=== PATIENT | female | born 1945 | race Caucasian/White ===

== ENCOUNTER 2017-08-11 12:05 | Inpatient (IN) | payer MEDICARE ==
[~2017-08-11] VITALS: Ht 157.5 cm; Wt 79.0 kg
[2017-08-11] MEDS ORDERED: SODIUM CHLORIDE 0.9% 1,000 ML IV ONE (12:11)
[2017-08-11 13:53] LABS: Basophils # (auto) 0 uL; Basophils % (auto) 0.5 % (0.0-2.0); Eosinophils # (auto) 0.1 uL; Eosinophils % (auto) 2.2 % (0.0-7.0); Lymphocytes # (auto) 1.4 uL; Monocytes # (auto) 0.4 uL; Neutrophils # (auto) 4.5 uL
[2017-08-11 13:55] LABS: Hematocrit 37.9 % (36.0-46.0); Hemoglobin 12.5 g/dL (12.2-16.2); Lymphocytes % (auto) 21.4 % (10.0-50.0); Mean Corpuscular Hemoglobin 23.7 pg (28.0-32.0); Mean Corpuscular Hgb Conc. 32.9 g/dL (32.0-36.0); Mean Corpuscular Volume 72.1 fL (80.0-100.0); Neutrophils % (auto) 69.9 % (37.0-80.0); Nucleated Red Blood Cells % 0.2 %; Platelet Count (auto) 300 10^3/uL (140-450); Red Blood Cells 5.26 10^6/uL (4.0-5.20); White Blood Cell 6.4 10^3/uL (4.4-10.8)
[2017-08-11 13:58] LABS: Red Cell Distribution Width 22.2 % (11.8-14.3)
[2017-08-11 14:07] LABS: INR 0.98 (0.9-1.15); Partial Thromboplastin Time 24.5 sec (22.64-33.71); Prothrombin Time 10.7 sec (9.37-12.3)
[2017-08-11 14:28] LABS: Alanine Aminotransferase 14 U/L (13-56); Albumin 3.7 g/dL (3.4-5.0); Alkaline Phosphatase 117 U/L (45-117); Anion Gap 12 (5-15); Aspartate Aminotransferase 11 U/L (15-37); BUN/Creatinine Ratio 10.8; Bilirubin, Total 0.3 mg/dL (0.2-1.0); Blood Urea Nitrogen 11 mg/dL (7-18); Calcium 8.1 mg/dL (8.5-10.1); Carbon Dioxide 22 mmol/L (21-32); Chloride 98 mmol/L (98-107); GFR African American 69 mL/min; GFR Non-African American 57 mL/min; Magnesium 2.1 mg/dL (1.6-2.6); Potassium 4.1 mmol/L (3.5-5.1); Sodium 132 mmol/L (136-145); Total Protein 8.1 g/dL (6.4-8.2)
[2017-08-11 14:40] LABS: Glucose 406 mg/dL (74-106)
[2017-08-11] MEDS ORDERED: BUPR100T14 PO (15:12)
[2017-08-11] MEDS ORDERED: ESOM40CA39 PO (15:12)
[2017-08-11] MEDS ORDERED: GABA300C10 PO (15:13)
[2017-08-11] MEDS ORDERED: MIRT30TA PO (15:13)
[2017-08-11] MEDS ORDERED: ALUM & MAG HYDROX-SIMETH LIQ(MAALOX) 30 ML PO ONE (15:15)
[2017-08-11] MEDS ORDERED: CYA100I PO (15:15)
[2017-08-11] MEDS ORDERED: CHOL20007 PO (15:15)
[2017-08-11] MEDS ORDERED: FERR-20 PO (15:15)
[2017-08-11] MEDS ORDERED: LORazepam 0.5 MG TAB PO PRN (15:15)
[2017-08-11] MEDS ORDERED: NITROGLYCERIN 0.4 MG SL TAB SL PRN ×2 (15:15)
[2017-08-11] MEDS ORDERED: MORPHINE SULF INJ 2 MG/ML SYRINGE 1ML IV PRN (15:15)
[2017-08-11] MEDS ORDERED: MORPHINE SULFATE 4 MG/ML SYR/VIAL IV PRN (15:15)
[2017-08-11] MEDS ORDERED: ONDANSETRON HCL 4 MG/2 ML VIAL IV PRN (15:15)
[2017-08-11] MEDS ORDERED: DEXTROSE (50%) 50ML SYRG IV PRN (15:30)
[2017-08-11] MEDS: ASPirin 81 mg TAB PO SCH (15:55)
[2017-08-11] MEDS: ENALAPRIL MALEATE 2.5 MG TAB PO SCH ×2 (15:57→22:03)
[2017-08-11] MEDS: CARVEDILOL 3.125 MG TAB PO SCH ×2 (15:57→22:02)
[2017-08-11] MEDS: CLOPIDOGREL BISULFATE 75 MG TAB PO SCH (15:57)
[2017-08-11] MEDS: ACCU-CHEK COMFORT CURVE STRIP VI SCH ×2 (16:28→22:03)
[2017-08-11] MEDS: InsuLIN REG 1unit/0.01ml Soln (100units/ml) SC SCH ×2 (16:30→22:14)
[2017-08-11 16:53] VITALS: BP 152/73
[2017-08-11 17:01] VITALS: BP 142/101
[2017-08-11] MEDS: FERROUS SULFATE 325 MG TAB PO SCH (17:30)
[2017-08-11] MEDS: buPROPion HCL 75 MG TAB PO SCH (18:47)
[2017-08-11 20:00] VITALS: BP 142/76
[2017-08-11 21:09] LABS: Urine Bacteria NONE SEEN /hpf (None Seen); Urine Blood Negative /uL (Negative); Urine Mucus FEW (None Seen); Urine Specific Gravity 1.029 (1.001-1.035); Urine WBC 24 /hpf (0 - 5)
[2017-08-11 22:00] VITALS: BP 142/76
[2017-08-11] MEDS: GABAPENTIN 300 MG CAP PO SCH (22:02)
[2017-08-11] MEDS: ATORVASTATIN 20 MG TAB PO SCH (22:02)
[2017-08-11] MEDS: MIRTAZAPINE 30 MG TAB PO SCH (22:02)
[2017-08-11] MEDS: ZOLPIDEM TARTRATE 5 MG TAB PO PRN (22:03)
[2017-08-11] MEDS: SODIUM CHLOR 0.9% PF (SALINE LOCK) 10ML VIAL IV SCH (22:11)
[2017-08-12] VITALS (7 sets, daily range): BP systolic 115–135; BP diastolic 66–86
[2017-08-12] MEDS: SODIUM CHLOR 0.9% PF (SALINE LOCK) 10ML VIAL IV SCH ×3 (05:56→21:56)
[2017-08-12 05:57] LABS: Basophils # (auto) 0 uL; Basophils % (auto) 0.6 % (0.0-2.0); Eosinophils # (auto) 0.2 uL; Monocytes # (auto) 0.4 uL; Nucleated Red Blood Cells % 0.2 %; White Blood Cell 4.9 10^3/uL (4.4-10.8)
[2017-08-12] MEDS: GABAPENTIN 300 MG CAP PO SCH ×3 (05:57→21:57)
[2017-08-12 06:00] LABS: Eosinophils % (auto) 4.3 % (0.0-7.0); Hematocrit 34.6 % (36.0-46.0); Hemoglobin 11.9 g/dL (12.2-16.2); Lymphocytes # (auto) 1.6 uL; Lymphocytes % (auto) 32.5 % (10.0-50.0); Mean Corpuscular Hemoglobin 24.6 pg (28.0-32.0); Mean Corpuscular Hgb Conc. 34.2 g/dL (32.0-36.0); Mean Corpuscular Volume 71.8 fL (80.0-100.0); Monocytes % (auto) 7.9 % (0.0-12.0); Neutrophils # (auto) 2.7 uL; Neutrophils % (auto) 54.7 % (37.0-80.0); Platelet Count (auto) 252 10^3/uL (140-450); Red Blood Cells 4.83 10^6/uL (4.0-5.20)
[2017-08-12 06:02] LABS: Red Cell Distribution Width 22.2 % (11.8-14.3)
[2017-08-12 06:21] LABS: Alanine Aminotransferase 12 U/L (13-56); Albumin 3.1 g/dL (3.4-5.0); Alkaline Phosphatase 99 U/L (45-117); Anion Gap 10 (5-15); Aspartate Aminotransferase 12 U/L (15-37); Bilirubin, Total 0.2 mg/dL (0.2-1.0); Blood Urea Nitrogen 16 mg/dL (7-18); Calcium 8.2 mg/dL (8.5-10.1); Carbon Dioxide 25 mmol/L (21-32); Chloride 101 mmol/L (98-107); Cholesterol 149 mg/dL (< 200); GFR African American 91 mL/min; GFR Non-African American 75 mL/min; Glucose 330 mg/dL (74-106); HDL Cholesterol 38 mg/dL (40-59); LDL Cholesterol 100 mg/dL (< 100); Magnesium 2.2 mg/dL (1.6-2.6); Sodium 136 mmol/L (136-145); Total Protein 6.9 g/dL (6.4-8.2); Triglycerides 147 mg/dL (< 150)
[2017-08-12] MEDS: buPROPion HCL 75 MG TAB PO SCH ×2 (06:24→17:52)
[2017-08-12] MEDS: ACCU-CHEK COMFORT CURVE STRIP VI SCH ×4 (06:24→21:58)
[2017-08-12] MEDS: InsuLIN REG 1unit/0.01ml Soln (100units/ml) SC SCH ×4 (06:32→22:13)
[2017-08-12] MEDS: ASPirin 81 mg TAB PO SCH (09:50)
[2017-08-12] MEDS: DOCUSATE SOD 100 MG CAP PO SCH (09:50)
[2017-08-12] MEDS: FERROUS SULFATE 325 MG TAB PO SCH ×2 (09:50→17:54)
[2017-08-12] MEDS: CHOLECALCIFEROL (VITD3) 1,000 UNIT TAB PO SCH (09:50)
[2017-08-12] MEDS: PANTOPRAZOLE 40 MG TAB PO SCH (09:50)
[2017-08-12] MEDS: CYANOCOBALAMIN 500 MCG TAB PO SCH (09:50)
[2017-08-12] MEDS: CARVEDILOL 3.125 MG TAB PO SCH ×2 (09:52→21:57)
[2017-08-12] MEDS: CLOPIDOGREL BISULFATE 75 MG TAB PO SCH (09:53)
[2017-08-12] MEDS: ENALAPRIL MALEATE 2.5 MG TAB PO SCH ×2 (09:53→21:58)
[2017-08-12] MEDS: glipiZIDE 5 MG TAB PO SCH (12:12)
[2017-08-12] MEDS: metFORMIN HYDROCHLORIDE 500 MG TAB PO SCH (17:55)
[2017-08-12] MEDS: ATORVASTATIN 20 MG TAB PO SCH (21:57)
[2017-08-12] MEDS: MIRTAZAPINE 30 MG TAB PO SCH (21:58)
[2017-08-12] MEDS: ACETAMINOPHEN 325 MG TAB PO PRN (21:59)
[2017-08-12] MEDS: ZOLPIDEM TARTRATE 5 MG TAB PO PRN (21:59)
[2017-08-12] MEDS ORDERED: POLYETHYLENE GLYCOL 17 GM PWDR PO PRN (23:00)
[2017-08-12] MEDS ORDERED: POLYETHYLENE GLYCOL 17 GM PWDR PO ONE (23:00)
[2017-08-13] VITALS (11 sets, daily range): BP systolic 105–148; BP diastolic 55–80
[2017-08-13 05:33] LABS: Basophils # (auto) 0 uL; Basophils % (auto) 0.6 % (0.0-2.0); Eosinophils # (auto) 0.2 uL; Lymphocytes # (auto) 1.7 uL; Monocytes # (auto) 0.4 uL; Neutrophils # (auto) 2.6 uL; Nucleated Red Blood Cells % 0.1 %; White Blood Cell 4.8 10^3/uL (4.4-10.8)
[2017-08-13 05:37] LABS: Eosinophils % (auto) 3.5 % (0.0-7.0); Hematocrit 35.2 % (36.0-46.0); Hemoglobin 11.7 g/dL (12.2-16.2); Lymphocytes % (auto) 34.3 % (10.0-50.0); Mean Corpuscular Hemoglobin 24.1 pg (28.0-32.0); Mean Corpuscular Hgb Conc. 33.1 g/dL (32.0-36.0); Mean Corpuscular Volume 72.9 fL (80.0-100.0); Monocytes % (auto) 8.7 % (0.0-12.0); Neutrophils % (auto) 52.9 % (37.0-80.0); Platelet Count (auto) 247 10^3/uL (140-450); Red Blood Cells 4.83 10^6/uL (4.0-5.20)
[2017-08-13 05:46] LABS: INR 0.97 (0.9-1.15); Prothrombin Time 10.6 sec (9.37-12.3)
[2017-08-13 05:48] LABS: Red Cell Distribution Width 22.2 % (11.8-14.3)
[2017-08-13 06:00] LABS: BUN/Creatinine Ratio 23.2; Calcium 8.9 mg/dL (8.5-10.1); Potassium 3.7 mmol/L (3.5-5.1)
[2017-08-13] MEDS: GABAPENTIN 300 MG CAP PO SCH ×3 (06:00→22:26)
[2017-08-13] MEDS: buPROPion HCL 75 MG TAB PO SCH ×2 (06:10→18:05)
[2017-08-13] MEDS: SODIUM CHLOR 0.9% PF (SALINE LOCK) 10ML VIAL IV SCH ×3 (06:10→22:25)
[2017-08-13] MEDS: glipiZIDE 5 MG TAB PO SCH ×2 (06:11→18:06)
[2017-08-13] MEDS: metFORMIN HYDROCHLORIDE 500 MG TAB PO SCH (06:11)
[2017-08-13] MEDS: ACCU-CHEK COMFORT CURVE STRIP VI SCH ×4 (06:41→22:26)
[2017-08-13] MEDS: InsuLIN REG 1unit/0.01ml Soln (100units/ml) SC SCH ×5 (06:41→22:41)
[2017-08-13] MEDS: DOCUSATE SOD 100 MG CAP PO SCH (08:24)
[2017-08-13] MEDS: ENALAPRIL MALEATE 2.5 MG TAB PO SCH ×2 (08:24→22:26)
[2017-08-13] MEDS: CARVEDILOL 3.125 MG TAB PO SCH ×2 (08:25→22:25)
[2017-08-13] MEDS: FERROUS SULFATE 325 MG TAB PO SCH ×2 (08:25→18:05)
[2017-08-13] MEDS: PANTOPRAZOLE 40 MG TAB PO SCH (08:25)
[2017-08-13] MEDS: CHOLECALCIFEROL (VITD3) 1,000 UNIT TAB PO SCH (08:26)
[2017-08-13] MEDS: CYANOCOBALAMIN 500 MCG TAB PO SCH (08:26)
[2017-08-13] MEDS: CLOPIDOGREL BISULFATE 75 MG TAB PO SCH (08:28)
[2017-08-13] MEDS: ASPirin 81 mg TAB PO SCH (08:29)
[2017-08-13] MEDS ORDERED: PIOGLITAZONE HYDROCHLORIDE 30 MG TAB PO ONE (13:00)
[2017-08-13] MEDS ORDERED: LIDOCAINE 2%HCL (LOCAL ANESTH.) INJ 20ML MDV ONE (14:18)
[2017-08-13] MEDS ORDERED: IOHEXOL 350 MG/ML 100ML IJ ONE (14:18)
[2017-08-13] MEDS ORDERED: fentaNYL CITRATE 100 MCG/2 ML VL ONE (15:09)
[2017-08-13] MEDS ORDERED: MIDAZOLAM HCL 1MG/1ML-2 ML VIAL ONE (15:09)
[2017-08-13] MEDS ORDERED: ANGIOMAX 250 MG VIAL IV ONE (15:12)
[2017-08-13] MEDS ORDERED: SODIUM CHL 0.9% 0 ML ONE (15:13)
[2017-08-13] MEDS: SOD CHL 0.45% 1,000 ML IV SCH (18:07)
[2017-08-13] MEDS: ATORVASTATIN 20 MG TAB PO SCH (22:26)
[2017-08-13] MEDS: MIRTAZAPINE 30 MG TAB PO SCH (22:26)
[2017-08-13] MEDS: ZOLPIDEM TARTRATE 5 MG TAB PO PRN (22:27)
[2017-08-14] MEDS: SOD CHL 0.45% 1,000 ML IV SCH ×2 (00:43→10:32)
[2017-08-14] MEDS: ACETAMINOPHEN 325 MG TAB PO PRN (02:57)
[2017-08-14 05:40] VITALS: BP 122/75
[2017-08-14] MEDS: SODIUM CHLOR 0.9% PF (SALINE LOCK) 10ML VIAL IV SCH ×2 (06:05→14:44)
[2017-08-14] MEDS: GABAPENTIN 300 MG CAP PO SCH ×2 (06:47→14:43)
[2017-08-14] MEDS: buPROPion HCL 75 MG TAB PO SCH (06:48)
[2017-08-14] MEDS: ACCU-CHEK COMFORT CURVE STRIP VI SCH ×2 (06:48→11:53)
[2017-08-14] MEDS: glipiZIDE 5 MG TAB PO SCH (06:48)
[2017-08-14] MEDS: InsuLIN REG 1unit/0.01ml Soln (100units/ml) SC SCH ×2 (06:48→11:53)
[2017-08-14 07:08] LABS: Basophils # (auto) 0 uL; Basophils % (auto) 0.7 % (0.0-2.0); Eosinophils # (auto) 0.2 uL; Mean Corpuscular Hgb Conc. 32.5 g/dL (32.0-36.0); Monocytes # (auto) 0.4 uL
[2017-08-14 07:11] LABS: Eosinophils % (auto) 2.8 % (0.0-7.0); Hematocrit 35.9 % (36.0-46.0); Hemoglobin 11.7 g/dL (12.2-16.2); Lymphocytes # (auto) 1.5 uL; Lymphocytes % (auto) 25.2 % (10.0-50.0); Mean Corpuscular Hemoglobin 23.8 pg (28.0-32.0); Mean Corpuscular Volume 73.3 fL (80.0-100.0); Monocytes % (auto) 7.5 % (0.0-12.0); Neutrophils # (auto) 3.7 uL; Neutrophils % (auto) 63.8 % (37.0-80.0); Nucleated Red Blood Cells % 0.4 %; Platelet Count (auto) 205 10^3/uL (140-450); White Blood Cell 5.8 10^3/uL (4.4-10.8)
[2017-08-14 07:18] LABS: Red Cell Distribution Width 22.4 % (11.8-14.3)
[2017-08-14 07:38] LABS: BUN/Creatinine Ratio 16.9; Calcium 8.5 mg/dL (8.5-10.1); Potassium 4.4 mmol/L (3.5-5.1)
[2017-08-14] MEDS: FERROUS SULFATE 325 MG TAB PO SCH (08:29)
[2017-08-14 09:00] VITALS: BP 97/42
[2017-08-14] MEDS: ENALAPRIL MALEATE 2.5 MG TAB PO SCH (10:00)
[2017-08-14] MEDS: CARVEDILOL 3.125 MG TAB PO SCH (10:00)
[2017-08-14] MEDS ORDERED: PIOGLITAZONE HYDROCHLORIDE 30 MG TAB PO SCH (10:00)
[2017-08-14] MEDS: ASPirin 81 mg TAB PO SCH (10:28)
[2017-08-14] MEDS: CLOPIDOGREL BISULFATE 75 MG TAB PO SCH (10:28)
[2017-08-14] MEDS: CHOLECALCIFEROL (VITD3) 1,000 UNIT TAB PO SCH (10:28)
[2017-08-14] MEDS: DOCUSATE SOD 100 MG CAP PO SCH (10:28)
[2017-08-14] MEDS: PANTOPRAZOLE 40 MG TAB PO SCH (10:29)
[2017-08-14] MEDS: CYANOCOBALAMIN 500 MCG TAB PO SCH (10:35)
[2017-08-14] MEDS ORDERED: METF-490 PO (14:18)
[2017-08-14] MEDS ORDERED: PIO30T PO (14:18)
[2017-08-14] MEDS ORDERED: GLIP-116 PO (14:18)
[2017-08-14 16:13] VITALS: BP 103/66
[2017-08-15] MEDS ORDERED: metFORMIN HYDROCHLORIDE 500 MG TAB PO SCH (18:00)
== END 2017-08-14 17:03 | disposition home or self-care (01) | DRG 287 ==
LOC: ER 12:05 → TELE 12:06 → TELE-WESTW 16:51
PROVIDERS: ADMIT Internal Medicine; ATTEND Internal Medicine
PROC: 4A023N7 Measurement of Cardiac Sampling and Pressure, Left Heart, Percutaneous Approach (ICD-10-PCS; principal; 2017-08-11)
PROC: B2111ZZ Fluoroscopy of Multiple Coronary Arteries using Low Osmolar Contrast (ICD-10-PCS; 2017-08-11)
PROC: B2151ZZ Fluoroscopy of Left Heart using Low Osmolar Contrast (ICD-10-PCS; 2017-08-11)
DX: R07.9 Chest pain, unspecified (principal); E11.21 Type 2 diabetes mellitus with diabetic nephropathy; E11.51 Type 2 diabetes mellitus with diabetic peripheral angiopathy without gangrene; E87.1 Hypo-osmolality and hyponatremia; E11.65 Type 2 diabetes mellitus with hyperglycemia; E83.51 Hypocalcemia; R00.2 Palpitations; N18.3 Chronic kidney disease, stage 3 (moderate); E11.22 Type 2 diabetes mellitus with diabetic chronic kidney disease; Z96.641 Presence of right artificial hip joint; K21.9 Gastro-esophageal reflux disease without esophagitis; Z82.49 Family history of ischemic heart disease and other diseases of the circulatory system; Z83.3 Family history of diabetes mellitus; Z98.51 Tubal ligation status; Z79.899 Other long term (current) drug therapy; Z87.891 Personal history of nicotine dependence
CPT/HCPCS: 36415; 71045; 80048; 80053; 80061; 81001; 82962; 83036; 83540; 83735; 83880; 84443; 84484; 85025; 85610; 85730; 86850; 86900; 86901; 93005; 93306; 93458; 96360; 99152; J1815; J2250; J2405

== ENCOUNTER 2023-03-29 11:43 | Inpatient (IN) | payer MEDICARE ==
[~2023-03-29] VITALS: Ht 160 cm; Wt 79.5 kg
[~2023-03-29 11:43] MED LIST: BUPR-346 PO; CHOL20007 PO; CYA100I PO; ESOM40CA39 PO; FERR325T24 PO; GABA-1250 PO; GLIP10TA9 PO; METF-490 PO; MIRT-94 PO; PIO30T PO
[2023-03-29] MEDS ORDERED: ALBUTEROL SULF 2.5 MG/0.5ML(0.5%) NEB SOLN NEB ONE (12:00)
[2023-03-29 12:06] LABS: Hematocrit 36.7 % (36.0-46.0); Hemoglobin 12.6 g/dL (12.2-16.2)
[2023-03-29 12:08] LABS: Mean Corpuscular Hemoglobin 28.6 pg (28.0-32.0); Mean Corpuscular Hgb Conc. 34.3 g/dL (32.0-36.0); Mean Corpuscular Volume 83.2 fL (80.0-100.0); Red Blood Cells 4.41 10^6/uL (4.0-5.20); Red Cell Distribution Width 13.8 % (11.8-14.3); White Blood Cell 27.2 10^3/uL (4.4-10.8)
[2023-03-29 12:14] LABS: Basophils % (manual) 0 (0.0-2.0); Blast Cells 0; Eosinophils % (manual) 0 (0-7); Metamyelocytes % 0; Myelocytes % 0; Promyelocytes % 0; Reactive Lymphocytes 0
[2023-03-29 12:21] LABS: Alanine Aminotransferase 11 U/L (7-40); Albumin 3.3 g/dL (3.2-4.8); Alkaline Phosphatase 90 U/L (46-116); Aspartate Aminotransferase 12 U/L (13-40); BUN/Creatinine Ratio 15.7 (10.0-20.0); Blood Urea Nitrogen 14 mg/dL (9-23); Carbon Dioxide 22 mmol/L (20-30); Glucose 253 mg/dL (74-106)
[2023-03-29 12:22] LABS: Bilirubin, Total 1.1 mg/dL (0.2-1.0); Total Protein 5.7 g/dL (5.7-8.2)
[2023-03-29 12:41] LABS: Band Neutrophils % (manual) 3; Lymphocytes % (manual) 4 (10.0-50.0); Monocytes % (manual) 4 (0-12); Platelet Estimate Adequate; RBC Morphology Normal
[2023-03-29 12:42] LABS: Anion Gap 9 (5-15); Chloride 99 mmol/L (98-107); Potassium 3.3 mmol/L (3.5-5.1); Sodium 130 mmol/L (136-145)
[2023-03-29 12:48] VITALS: PULSE 111; RESP 16; O2SAT 100
[2023-03-29] MEDS ORDERED: IOHEXOL 300 MG/ML 100ML BOTTLE IJ ONE (14:20)
[2023-03-29] MEDS ORDERED: levoFLOXacin 750MG 150 ML IV ONE (14:30)
[2023-03-29] MEDS ORDERED: LACTATED RINGER'S 1,000 ML IV ONE ×2 (14:30→18:00)
[2023-03-29 17:11] LABS: Urine Bacteria NONE SEEN /hpf (None Seen); Urine Blood Negative /uL (Negative); Urine Clarity Clear (Clear); Urine Color Yellow (Yellow); Urine Mucus FEW (None Seen); Urine Protein, UAD 1+ (Negative); Urine Specific Gravity > 1.050 (1.001-1.035); Urine Urobilinogen Normal (Negative); Urine WBC 30 /hpf (0 - 5); Urine pH 6.5 (5.0-8.0)
[2023-03-29 17:55] VITALS: PULSE 119; RESP 12; O2SAT 91
[2023-03-29] MEDS ORDERED: POTASSIUM EFFERVESENT TAB 25 MEQ PO ONE (18:15)
[2023-03-29] MEDS ORDERED: ACETAMINOPHEN 325 MG TAB PO PRN (18:15)
[2023-03-29] MEDS ORDERED: MORPHINE SULFATE INJ 2 MG/ml SYRG IV PRN (18:15)
[2023-03-29] MEDS ORDERED: metroNIDAZOLE 500MG/100ML 100 ML IV ONE (18:15)
[2023-03-29] MEDS ORDERED: NITROGLYCERIN 0.4 MG SL TAB SL PRN (18:15)
[2023-03-29] MEDS ORDERED: DEXTROSE (50%) 50ML SYRG IV PRN (18:15)
[2023-03-29] MEDS ORDERED: PANTOPRAZOLE 40 MG/10 ML VIAL INJ IV ONE (19:00)
[2023-03-29 20:00] VITALS: PULSE 120; RESP 13; O2SAT 92
[2023-03-29 22:03] VITALS: BP 105/65; PULSE 117; RESP 19; TEMP 98.2; O2SAT 95
[2023-03-29] MEDS: SODIUM CHLORIDE 0.9% 1,000 ML IV SCH (22:06)
[2023-03-29] MEDS: CIPROFLOXACIN 400MG/200ML 200 ML IV SCH (22:06)
[2023-03-29] MEDS: GABAPENTIN 300 MG CAP PO SCH (22:06)
[2023-03-29] MEDS: ACCU-CHEK COMFORT CURVE STRIP VI SCH (22:07)
[2023-03-29] MEDS: InsuLIN REG 1unit/0.01ml Soln (100units/ml) SC SCH (22:29)
[2023-03-30] VITALS (7 sets, daily range): BP systolic 121–148; BP diastolic 56–74; PULSE 86–116; RESP 18–20; TEMP 97.8–98.8; O2SAT 90–99
[2023-03-30] MEDS: metroNIDAZOLE 500MG/100ML 100 ML IV SCH ×3 (02:00→18:57)
[2023-03-30] MEDS: GABAPENTIN 300 MG CAP PO SCH ×3 (06:18→22:41)
[2023-03-30] MEDS: ACCU-CHEK COMFORT CURVE STRIP VI SCH ×4 (06:18→22:41)
[2023-03-30] MEDS: InsuLIN REG 1unit/0.01ml Soln (100units/ml) SC SCH ×4 (06:26→22:40)
[2023-03-30 08:02] LABS: Hematocrit 35.6 % (36.0-46.0); Hemoglobin 12.3 g/dL (12.2-16.2); Mean Corpuscular Hemoglobin 28.9 pg (28.0-32.0); Mean Corpuscular Hgb Conc. 34.6 g/dL (32.0-36.0); Mean Corpuscular Volume 83.7 fL (80.0-100.0); Red Blood Cells 4.25 10^6/uL (4.0-5.20); Red Cell Distribution Width 13.6 % (11.8-14.3); White Blood Cell 29.8 10^3/uL (4.4-10.8)
[2023-03-30 08:05] LABS: Basophils % (manual) 0 (0.0-2.0); Blast Cells 0; Myelocytes % 0; Promyelocytes % 0; Reactive Lymphocytes 0
[2023-03-30 08:24] LABS: Albumin 3.1 g/dL (3.2-4.8); Alkaline Phosphatase 89 U/L (46-116); Aspartate Aminotransferase 14 U/L (13-40); BUN/Creatinine Ratio 14.8 (10.0-20.0); Bilirubin, Total 0.6 mg/dL (0.2-1.0); Blood Urea Nitrogen 12 mg/dL (9-23); Calcium 7.9 mg/dL (8.5-10.1); Carbon Dioxide 24 mmol/L (20-30); Glucose 166 mg/dL (74-106); Total Protein 5.5 g/dL (5.7-8.2)
[2023-03-30 08:25] LABS: Alanine Aminotransferase 9 U/L (7-40)
[2023-03-30 09:04] LABS: Anion Gap 6 (5-15); Chloride 100 mmol/L (98-107); Potassium 3.8 mmol/L (3.5-5.1); Sodium 130 mmol/L (136-145)
[2023-03-30] MEDS ORDERED: FERROUS SULFATE 325mg EC TAB PO SCH (10:00)
[2023-03-30] MEDS: PANTOPRAZOLE 40 MG/10 ML VIAL INJ IV SCH (11:27)
[2023-03-30] MEDS: CIPROFLOXACIN 400MG/200ML 200 ML IV SCH ×2 (11:27→22:40)
[2023-03-30] MEDS: CHOLECALCIFEROL (VITD3) 2,000 UNIT CAP/TAB PO SCH (11:29)
[2023-03-30] MEDS: buPROPion HCL 100 MG TAB PO SCH (11:30)
[2023-03-30] MEDS: ONDANSETRON HCL 4 MG/2 ML VIAL IV PRN (11:35)
[2023-03-30] MEDS: ENOXAPARIN SOD 40 MG/0.4 ML SYRINGE SC SCH (12:00)
[2023-03-30 13:00] LABS: Band Neutrophils % (manual) 12; Eosinophils % (manual) 2 (0-7); Lymphocytes % (manual) 4 (10.0-50.0); Metamyelocytes % 1; Monocytes % (manual) 4 (0-12)
[2023-03-30 13:01] LABS: Platelet Estimate Increased
[2023-03-30] MEDS: SODIUM CHLORIDE 0.9% 1,000 ML IV SCH ×2 (14:15→22:56)
[2023-03-30] MEDS: HYDROcodone-ACET 5/325MG TAB PO PRN (15:13)
[2023-03-30] MEDS: VANCOMYCIN HCL 125MG/5ML ORAL SOL PO SCH ×2 (18:52→22:41)
[2023-03-30] MEDS: MIRTAZAPINE 30 MG TAB PO SCH (18:57)
[2023-03-31] VITALS (7 sets, daily range): BP systolic 129–167; BP diastolic 61–84; PULSE 98–115; RESP 18–20; TEMP 97.6–98.7; O2SAT 94–97
[2023-03-31] MEDS: HYDROcodone-ACET 5/325MG TAB PO PRN ×4 (02:27→22:01)
[2023-03-31] MEDS: metroNIDAZOLE 500MG/100ML 100 ML IV SCH ×3 (02:27→17:28)
[2023-03-31] MEDS: GABAPENTIN 300 MG CAP PO SCH ×3 (06:14→21:55)
[2023-03-31] MEDS: VANCOMYCIN HCL 125MG/5ML ORAL SOL PO SCH ×4 (06:15→21:57)
[2023-03-31] MEDS: ACCU-CHEK COMFORT CURVE STRIP VI SCH ×4 (06:15→21:57)
[2023-03-31] MEDS: InsuLIN REG 1unit/0.01ml Soln (100units/ml) SC SCH ×4 (06:27→21:58)
[2023-03-31 10:04] LABS: Eosinophils # (auto) 0.1 10 ^3/uL (0-0.8); Eosinophils % (auto) 0.3 % (0.0-7.0); Hemoglobin 12.2 g/dL (12.2-16.2); Lymphocytes # (auto) 0.7 10 ^3/uL (0.4-5.4); Mean Corpuscular Hemoglobin 28.8 pg (28.0-32.0); Red Blood Cells 4.23 10^6/uL (4.0-5.20)
[2023-03-31 10:06] LABS: Basophils # (auto) 0.1 10 ^3/uL (0-0.2); Basophils % (auto) 0.3 % (0.0-2.0); Hematocrit 35.2 % (36.0-46.0); Lymphocytes % (auto) 3.4 % (10.0-50.0); Mean Corpuscular Hgb Conc. 34.6 g/dL (32.0-36.0); Mean Corpuscular Volume 83.2 fL (80.0-100.0); Monocytes # (auto) 1.4 10 ^3/uL (0-1.3); Monocytes % (auto) 6.4 % (0.0-12.0); Neutrophils # (auto) 18.8 10 ^3/uL (1.6-8.6); Neutrophils % (auto) 89.6 % (37.0-80.0); Red Cell Distribution Width 13.6 % (11.8-14.3)
[2023-03-31] MEDS: SODIUM CHLORIDE 0.9% 1,000 ML IV SCH ×2 (10:15→20:36)
[2023-03-31 10:27] LABS: Albumin 2.8 g/dL (3.2-4.8); Alkaline Phosphatase 86 U/L (46-116); Anion Gap 5 (5-15); Aspartate Aminotransferase 12 U/L (13-40); BUN/Creatinine Ratio 9.5 (10.0-20.0); Bilirubin, Total 0.3 mg/dL (0.2-1.0); Blood Urea Nitrogen 8 mg/dL (9-23); Calcium 7.6 mg/dL (8.7-10.4); Carbon Dioxide 23 mmol/L (20-30); Chloride 102 mmol/L (98-107); Glucose 172 mg/dL (74-106); Potassium 3.4 mmol/L (3.5-5.1); Sodium 130 mmol/L (136-145); Total Protein 5.1 g/dL (5.7-8.2)
[2023-03-31 10:32] LABS: Alanine Aminotransferase < 9 U/L (7-40)
[2023-03-31] MEDS: buPROPion HCL 100 MG TAB PO SCH (10:42)
[2023-03-31] MEDS: CHOLECALCIFEROL (VITD3) 2,000 UNIT CAP/TAB PO SCH (10:42)
[2023-03-31] MEDS: ENOXAPARIN SOD 40 MG/0.4 ML SYRINGE SC SCH (10:42)
[2023-03-31] MEDS: PANTOPRAZOLE 40 MG/10 ML VIAL INJ IV SCH (10:43)
[2023-03-31] MEDS: CIPROFLOXACIN 400MG/200ML 200 ML IV SCH ×2 (10:44→21:58)
[2023-03-31] MEDS: MIRTAZAPINE 30 MG TAB PO SCH (17:30)
[2023-04-01] VITALS (7 sets, daily range): BP systolic 123–151; BP diastolic 74–96; PULSE 103–120; RESP 16–20; TEMP 97.8–99.2; O2SAT 94–96
[2023-04-01] MEDS: metroNIDAZOLE 500MG/100ML 100 ML IV SCH ×3 (02:10→18:13)
[2023-04-01 05:50] LABS: Eosinophils # (auto) 0.1 10 ^3/uL (0-0.8); Hemoglobin 12.3 g/dL (12.2-16.2)
[2023-04-01 05:52] LABS: Basophils # (auto) 0 10 ^3/uL (0-0.2); Basophils % (auto) 0.2 % (0.0-2.0); Eosinophils % (auto) 0.6 % (0.0-7.0); Hematocrit 35.8 % (36.0-46.0); Lymphocytes % (auto) 6.2 % (10.0-50.0); Mean Corpuscular Hemoglobin 28.6 pg (28.0-32.0); Mean Corpuscular Hgb Conc. 34.4 g/dL (32.0-36.0); Mean Corpuscular Volume 83.4 fL (80.0-100.0); Monocytes # (auto) 1.3 10 ^3/uL (0-1.3); Monocytes % (auto) 8.2 % (0.0-12.0); Neutrophils # (auto) 13.8 10 ^3/uL (1.6-8.6); Neutrophils % (auto) 84.8 % (37.0-80.0); Red Blood Cells 4.29 10^6/uL (4.0-5.20); Red Cell Distribution Width 13.8 % (11.8-14.3); White Blood Cell 16.3 10^3/uL (4.4-10.8)
[2023-04-01 06:04] LABS: Alanine Aminotransferase 10 U/L (7-40); Alkaline Phosphatase 84 U/L (46-116); Anion Gap 6 (5-15); BUN/Creatinine Ratio 7.7 (10.0-20.0); Blood Urea Nitrogen 6 mg/dL (9-23); Calcium 7.5 mg/dL (8.7-10.4); Carbon Dioxide 22 mmol/L (20-30); Chloride 100 mmol/L (98-107); Glucose 181 mg/dL (74-106); Potassium 3.6 mmol/L (3.5-5.1); Sodium 128 mmol/L (136-145)
[2023-04-01 06:05] LABS: Albumin 2.7 g/dL (3.2-4.8); Aspartate Aminotransferase 17 U/L (13-40); Bilirubin, Total 0.3 mg/dL (0.2-1.0)
[2023-04-01 06:06] LABS: Total Protein 4.9 g/dL (5.7-8.2)
[2023-04-01] MEDS: ACCU-CHEK COMFORT CURVE STRIP VI SCH ×4 (06:25→21:31)
[2023-04-01] MEDS: GABAPENTIN 300 MG CAP PO SCH ×3 (06:25→21:30)
[2023-04-01] MEDS: SODIUM CHLORIDE 0.9% 1,000 ML IV SCH ×2 (06:26→19:45)
[2023-04-01] MEDS: VANCOMYCIN HCL 125MG/5ML ORAL SOL PO SCH ×4 (06:26→21:31)
[2023-04-01] MEDS: HYDROcodone-ACET 5/325MG TAB PO PRN ×2 (06:40→20:39)
[2023-04-01] MEDS: InsuLIN REG 1unit/0.01ml Soln (100units/ml) SC SCH ×4 (06:40→21:50)
[2023-04-01] MEDS ORDERED: LOPERAMIDE HCL 2 MG CAP/TAB PO PRN (08:30)
[2023-04-01] MEDS ORDERED: LOPERAMIDE HCL 2 MG CAP/TAB PO ONE (08:30)
[2023-04-01] MEDS ORDERED: cloNIDine HCL 0.1 MG TAB PO PRN (08:30)
[2023-04-01] MEDS: FLORASTOR (S. BOULARDII) 250 MG CAP PO SCH (10:21)
[2023-04-01] MEDS: CHOLECALCIFEROL (VITD3) 2,000 UNIT CAP/TAB PO SCH (10:21)
[2023-04-01] MEDS: ENOXAPARIN SOD 40 MG/0.4 ML SYRINGE SC SCH (10:21)
[2023-04-01] MEDS: buPROPion HCL 100 MG TAB PO SCH (10:22)
[2023-04-01] MEDS: PANTOPRAZOLE 40 MG/10 ML VIAL INJ IV SCH (10:23)
[2023-04-01] MEDS: CIPROFLOXACIN 400MG/200ML 200 ML IV SCH ×2 (10:33→21:31)
[2023-04-01] MEDS: MIRTAZAPINE 30 MG TAB PO SCH (18:12)
[2023-04-01] MEDS: ONDANSETRON HCL 4 MG/2 ML VIAL IV PRN (18:26)
[2023-04-02] MEDS: metroNIDAZOLE 500MG/100ML 100 ML IV SCH ×2 (02:10→12:24)
[2023-04-02] MEDS: HYDROcodone-ACET 5/325MG TAB PO PRN (02:18)
[2023-04-02] MEDS: SODIUM CHLORIDE 0.9% 1,000 ML IV SCH ×2 (02:19→12:15)
[2023-04-02 05:00] VITALS: BP 154/80; PULSE 104; RESP 16; TEMP 98; O2SAT 94
[2023-04-02 05:15] LABS: Basophils # (auto) 0 10 ^3/uL (0-0.2); Basophils % (auto) 0.2 % (0.0-2.0); Eosinophils # (auto) 0.1 10 ^3/uL (0-0.8); Eosinophils % (auto) 0.7 % (0.0-7.0); Hematocrit 32.3 % (36.0-46.0); Hemoglobin 11.2 g/dL (12.2-16.2); Lymphocytes # (auto) 0.8 10 ^3/uL (0.4-5.4); Lymphocytes % (auto) 5.4 % (10.0-50.0); Mean Corpuscular Hgb Conc. 34.5 g/dL (32.0-36.0); Monocytes # (auto) 1.2 10 ^3/uL (0-1.3); Monocytes % (auto) 8.2 % (0.0-12.0); Neutrophils # (auto) 12.8 10 ^3/uL (1.6-8.6); Neutrophils % (auto) 85.5 % (37.0-80.0); Nucleated Red Blood Cells % 0.1 %; Red Blood Cells 3.85 10^6/uL (4.0-5.20); Red Cell Distribution Width 13.8 % (11.8-14.3); White Blood Cell 14.9 10^3/uL (4.4-10.8)
[2023-04-02 05:24] LABS: Alanine Aminotransferase 19 U/L (7-40); Albumin 2.3 g/dL (3.2-4.8); Alkaline Phosphatase 79 U/L (46-116); Anion Gap 6 (5-15); Aspartate Aminotransferase 42 U/L (13-40); BUN/Creatinine Ratio 7.6 (10.0-20.0); Blood Urea Nitrogen 5 mg/dL (9-23); Calcium 7.2 mg/dL (8.7-10.4); Carbon Dioxide 20 mmol/L (20-30); Chloride 101 mmol/L (98-107); Glucose 125 mg/dL (74-106); Potassium 3.3 mmol/L (3.5-5.1); Sodium 127 mmol/L (136-145)
[2023-04-02 05:25] LABS: Bilirubin, Total 0.2 mg/dL (0.2-1.0); Total Protein 3.9 g/dL (5.7-8.2)
[2023-04-02] MEDS: ACCU-CHEK COMFORT CURVE STRIP VI SCH ×2 (06:19→12:24)
[2023-04-02] MEDS: GABAPENTIN 300 MG CAP PO SCH ×2 (06:19→13:11)
[2023-04-02] MEDS: VANCOMYCIN HCL 125MG/5ML ORAL SOL PO SCH ×2 (06:20→12:25)
[2023-04-02] MEDS: InsuLIN REG 1unit/0.01ml Soln (100units/ml) SC SCH ×2 (06:30→12:54)
[2023-04-02 08:00] VITALS: PULSE 112; RESP 18
[2023-04-02 09:00] VITALS: BP 133/78; PULSE 112; RESP 18; TEMP 98; O2SAT 95
[2023-04-02] MEDS: ENOXAPARIN SOD 40 MG/0.4 ML SYRINGE SC SCH (10:00)
[2023-04-02] MEDS: CHOLECALCIFEROL (VITD3) 2,000 UNIT CAP/TAB PO SCH (10:47)
[2023-04-02] MEDS: FLORASTOR (S. BOULARDII) 250 MG CAP PO SCH (10:47)
[2023-04-02] MEDS: buPROPion HCL 100 MG TAB PO SCH (10:47)
[2023-04-02] MEDS: PANTOPRAZOLE 40 MG/10 ML VIAL INJ IV SCH (10:47)
[2023-04-02] MEDS: CIPROFLOXACIN 400MG/200ML 200 ML IV SCH (10:48)
[2023-04-02 12:30] VITALS: BP 157/82; PULSE 106; RESP 18; TEMP 98.2; O2SAT 97
[2023-04-02 13:24] LABS: COVID19 ANTIGEN SOFIA FIA NEGATIVE (NEGATIVE)
== END 2023-04-02 16:15 | DRG 872 ==
LOC: ER 11:43 → TELE 18:20 → TELE-CENTR 21:32
PROVIDERS: ADMIT Nurse Practitioner Family; ATTEND Family Medicine
PROC: 05HC33Z Insertion of Infusion Device into Left Basilic Vein, Percutaneous Approach (ICD-10-PCS; principal; 2023-03-29)
PROC: B54NZZA Ultrasonography of Left Upper Extremity Veins, Guidance (ICD-10-PCS; 2023-03-29)
DX: A41.9 Sepsis, unspecified organism (principal); E87.1 Hypo-osmolality and hyponatremia; A04.72 Enterocolitis due to Clostridium difficile, not specified as recurrent; R65.20 Severe sepsis without septic shock; K21.9 Gastro-esophageal reflux disease without esophagitis; E87.6 Hypokalemia; E11.42 Type 2 diabetes mellitus with diabetic polyneuropathy; E11.65 Type 2 diabetes mellitus with hyperglycemia; E86.0 Dehydration; F32.A Depression, unspecified; E11.9 Type 2 diabetes mellitus without complications; Z98.51 Tubal ligation status; Z20.822 Contact with and (suspected) exposure to COVID-19; E03.9 Hypothyroidism, unspecified
CPT/HCPCS: 36415; 70450; 71045; 74177; 80053; 81001; 82962; 83036; 83605; 83880; 84484; 85007; 85025; 85027; 87040; 87045; 87177; 87426; 87427; 87493; 93005; 94640; 96361; 96365; 96367; C9113; G0378; J1815; J1956; J2405; J3490